=== PATIENT | female | born 1945 | race Caucasian/White ===

== ENCOUNTER → 2017-10-24 11:49 | Outpatient (CLI) | payer MEDICARE, SELFPAY | PROVIDERS: Visit Provider Obstetrics & Gynecology | DX: R31.29 Other microscopic hematuria (principal) | CPT/HCPCS: 87086; 87088 ==

== ENCOUNTER → 2018-02-15 11:03 | Outpatient (CLI) | payer MEDICARE, SELFPAY ==
--- NOTE | 2018-02-15 11:08 | RAD_ITS ---
STUDY: X-RAY - RIGHT KNEE REASON FOR EXAM: Female, 72 years old. Chronic pain. No recent injury. TECHNIQUE: 4 view(s) of the knee. COMPARISON: None. FINDINGS: Normal visualized distal femur. Normal visualized proximal tibia and fibula. Normal proximal tibiofibular articulation. There is no acute fracture, dislocation or destructive osseous pathology. There is mild degenerative arthrosis of the medial femorotibial compartment. Normal lateral femorotibial compartment. There is mild degenerative arthrosis of the patellofemoral articulation. There is no demonstrated joint effusion. The soft tissue structures are unremarkable. RAD/Knee 4 or More Views IMPRESSION: Minimal arthrosis of the right knee. Electronically Signed: Oliverio Reyes DO at 22:37 EDT Tel [phone], Service support ,
--- NOTE | 2018-02-15 11:08 | RAD_ITS ---
STUDY: X-RAY - LUMBAR SPINE REASON FOR EXAM: Female, 72 years old. Chronic pain. No recent injury. TECHNIQUE: 5 view(s) of the lumbar spine were obtained. COMPARISON: None FINDINGS: Normal lumbar lordosis. There is a dextroscoliosis with a convexity at L1. There is anterolisthesis of L5 on S1 of 3 mm. The alignment is otherwise preserved. There is disc space narrowing at L5-S1. The remainder of the disc spaces are preserved. There is no endplate spondylosis. There is no evidence of acute fracture or loss of vertebral axial height. There is no demonstrated spondylolysis of the pars interarticulares. The soft tissue structures are unremarkable. RAD/L/S Spine Min 4 Views IMPRESSION: Scoliosis and degenerative changes of the lumbar spine. Electronically Signed: Oliverio Reyes DO at 22:39 EDT Tel [phone], Service support ,
--- NOTE | 2018-02-15 11:08 | RAD_ITS ---
STUDY: X-RAY - PELVIS AND RIGHT HIP REASON FOR EXAM: Female, 72 years old. Chronic pain. TECHNIQUE: Radiological exam, hip, unilateral, with pelvis when performed; 2 or 3 views. COMPARISON: None. FINDINGS: There is a non-specific bowel gas pattern. Normal visualized soft tissue structures. Tubal ligation clips are seen in the pelvis. Phleboliths are also present. Normal bilateral iliac wings, sacroiliac joints and visualized sacrum. Normal bilateral superior and inferior pubic rami. Normal pubic symphysis. Normal bilateral ischial tuberosities. 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 Normal right acetabulum. There is mild articular joint space narrowing of the right hip. RAD/HIP, UNI W/ Pelvis 2-3 Views IMPRESSION: Degenerative changes the right hip without fracture or dislocation. Electronically Signed: Oliverio Reyes DO at 23:07 EDT Tel [phone], Service support ,
[2018-02-15 12:25] LABS: Absolute Lymphocyte Count 1.93 X10^3/ul (0.83-4.51); Absolute Neutrophil Count 3.8 X10^3/uL (2.0-7.7); Basophil# 0.03 X10^3/uL; Basophil% 0.5 % (0-1); Eosinophil# 0.11 X10^3/uL; Eosinophils% 1.7 % (0-5); Hemoglobin 13.5 g/dl (12.0-15.0); Lymphocyte # 1.93 X10^3/ul (4.0); Lymphocyte % 30.2 % (19-41); Mean Corp Hgb Conc 32.9 g/gl (32-36); Mean Corpuscular Hgb 31.3 pg (27.0-32.0); Mean Corpuscular Volume 95.1 fL (81-99); Mean Platelet Vol. 10.6 fl (6.2-12.0); Monocyte# 0.56 X10^3/uL; Monocyte% 8.8 % (0-10); Neutrophil # 3.76 X10^3/uL (2.7-7.7); Neutrophil % 58.8 % (47-70); Platelet Count 279 K/mm3 (150-450); RBC Distribution Width CV 12.4 % (11.6-14.6); RBC Distribution Width SD 42.6 fl (35.1-43.9); Red Blood Count 4.31 M/mm3 (4.2-5.4); White Blood Count 6.4 K/mm3 (4.4-11.0)
[2018-02-15 12:32] LABS: POSITIVE COUNT NO; POSITIVE DIFFERENTIAL NO; POSITIVE MORPHOLOGY NO
[2018-02-15 13:13] LABS: ALB/GLOB Ratio 0.9 RATIO (0.9-2.4); AST(SGOT) 29 U/L (15-37); Alanine Aminotransfer ALT/SGPT 28 U/L (13-56); Albumin, Serum 3.6 g/dL (3.2-5.0); Alkaline Phosphatase 79 U/L (45-117); Anion Gap 8 (5-15); BUN 21 mg/dL (7-18); Calcium,Total 9.2 mg/dL (8.5-10.1); Chloride 106 mmol/L (98-107); Creatinine, Serum 0.78 mg/dL (0.55-1.02); EST Glomerular Filtration Rate 78 mL/min (>60); Est Glom Filt Rate - Afr Amer 94 mL/min (>60); Glucose 94 mg/dL (74-106); Protein, Total 7.6 g/dL (6.4-8.2); Sodium Level 141 mmol/L (136-145); Thyroid Stim Hormone (TSH) 0.95 uIU/mL (0.358-3.74)
== END ==
PROVIDERS: Visit Provider Family Medicine
DX: M17.11 Unilateral primary osteoarthritis, right knee (principal); M16.11 Unilateral primary osteoarthritis, right hip; M54.16 Radiculopathy, lumbar region; M43.17 Spondylolisthesis, lumbosacral region; M48.07 Spinal stenosis, lumbosacral region; R61 Generalized hyperhidrosis
CPT/HCPCS: 36415; 72110; 73502; 73564; 80053; 84443; 85025

== ENCOUNTER → 2019-02-20 16:22 | Outpatient (CLI) | payer MEDICARE, SELFPAY ==
--- NOTE | 2019-02-20 16:28 | BI_ITS ---
MAMMOGRAPHY - BILATERAL SCREENING REASON FOR EXAM: Female, 73 years old. Routine annual screening examination. PERTINENT HISTORY: Non-contributory. TECHNIQUE: Digital bilateral breast gilberto (3D mammographic acquisition) in the CC and MLO projections. 2-D mediolateral oblique (MLO) and craniocaudad (CC) views of both breasts were obtained. CAD: Full Field Digital Mammography with Computer Added Detection was performed. COMPARISON: Comparison is made with prior examination dated May 27, 2016 and April 28, 2015. FINDINGS: Breast Composition: There are scattered areas of fibroglandular density. There are no dominant masses or suspicious calcifications. No other significant abnormalities are identified. There has been no significant change since the prior study. BI/SCREEN MAMM (CAD) W/GILBERTO BILAT IMPRESSION: Stable bilateral screening mammogram. Yearly follow-up mammogram recommended. (A) ASSESSMENT CATEGORY: BIRADS Category 1: Negative. A letter regarding these results will be sent to the patient by the facility within 30 days. Approximately 10% of breast cancers are not detected by mammography. A normal mammogram should not delay biopsy of a clinically suspicious abnormality. [id number] Electronically Signed: Butch Sánchez, at 8:55 EDT , Service support ,
== END ==
PROVIDERS: Family Provider Family Medicine; PCP Family Medicine; Referring Provider Family Medicine; Visit Provider Family Medicine
DX: Z12.31 Encounter for screening mammogram for malignant neoplasm of breast (principal)
CPT/HCPCS: 77063; 77067

== ENCOUNTER → 2021-01-05 15:22 | Outpatient (CLI) | payer MEDICARE, SELFPAY | PROVIDERS: PCP Family Medicine; Referring Provider Family Medicine; Visit Provider Family Medicine | DX: N39.0 Urinary tract infection, site not specified (principal) | CPT/HCPCS: 87086; 87088 ==

== ENCOUNTER → 2021-03-12 09:50 | Outpatient (CLI) | payer MEDICARE, SELFPAY ==
--- NOTE | 2021-03-12 10:12 | BI_ITS ---
MAMMOGRAPHY - BILATERAL SCREENING 3-D TOMOSYNTHESIS REASON FOR EXAM: Female, 75 years old. SCREENING PERTINENT HISTORY: No significant family history. TECHNIQUE: 2-D mammograms and 3-D Tomosynthesis of the breast (s) were performed. CAD was performed. COMPARISON: 02/20/2019 FINDINGS: The breast composition is heterogeneously dense that can obscure small breast masses. Scattered benign calcifications are seen. No dense spiculated masses or suspicious microcalcifications are identified. No architectural distortion is identified. There is no skin thickening or retraction. There has been no significant change since the prior study. BI/SCRN MAMM (CAD)W/GILBERTO BILAT IMPRESSION: No mammographic signs of malignancy. Routine yearly mammograms recommended. ASSESSMENT CATEGORY: BIRADS Category 1: Negative. A letter regarding these results will be sent to the patient by the facility within 30 days. FOLLOW UP RECOMMENDATION: Yearly follow up mammogram recommended. (A) Approximately 10% of breast cancers are not detected by mammography. A normal mammogram should not delay biopsy of a clinically suspicious abnormality. Electronically Signed: Pierce Moreno MD at 12:28 EDT Tel , Service support ,
== END ==
PROVIDERS: PCP Family Medicine; Referring Provider Family Medicine; Visit Provider Family Medicine
DX: Z12.31 Encounter for screening mammogram for malignant neoplasm of breast (principal)
CPT/HCPCS: 77063; 77067

== ENCOUNTER 2021-11-24 12:38 | Emergency (ER) | payer MEDICARE, SELFPAY ==
[2021-11-24 12:38] VITALS: BP 71/42; PULSE 69; RESP 14; TEMP 36.3; O2SAT 97; BMI 29.2
[2021-11-24] MEDS: Lidocaine/Epi/Tetracaine 50 ML 1 APPLIC TOPICAL (13:54)
--- NOTE | 2021-11-24 15:32 | EDS_ITS ---
HPI History of Present Illness HPI Narrative: Patient presents with a laceration to her right forearm that occurred today. Patient states she was trying to break up 2 dogs from fighting. Patient states the dog's immunizations were up-to-date. Patient is unsure if she was bitten by her dog or scratched with his paw. Patient denies any paresthesias or weakness. Patient describes her pain as aching. Patient states nothing makes it better nothing makes it worse. Patient states the bleeding stopped after several minutes of pressure. Patient denies any other injuries. Chief Complaint: Laceration Informant: patient Occured/Mechanism Comment: Dog bite/scratch Onset/Context/Timing Context: Sudden Onset Timing: Continuous Quality of Pain: Aching Location: Right forearm Worsened by: Nothing Relieved by: Nothing Associated Symptoms Associated Symptoms: Negative for Parasthesia, Weakness or Loss of Funtion Narrative Tetanus Immunization: Unknown [facility] Medical History Anxiety Depression Home Medications clindamycin HCl 300 mg capsule (Cleocin HCl) 300 mg PO Q6H #40 CAPSULES 11/24/21 [Rx Last Taken Unknown] Allergy/AdvReac Type Severity Reaction Status Date / Time Penicillins Allergy Hives Verified 11/24/21 12:40 Social History Smoking Status: Former smoker ROS ROS ED Constitutional Constitutional ED: Denies chills or fever(s) Eyes Eyes: Denies blurry vision or change in vision ENT ENT ED: Denies rhinorrhea or sore throat Cardiovascular Cardiovascular: Denies chest pain or palpitations Respiratory/Chest Respiratory/Chest: Denies cough or dyspnea Gastrointestinal Gastrointestinal: Denies nausea or vomiting Genitourinary Genitourinary ED: Denies dysuria or hematuria Musculoskeletal Musculoskeletal: Reports neck pain; Denies back pain Integumentary Denies abscess or rash Neurologic Neurologic: Denies headache(s) or weakness Allergic/Immunologic Allergic/Immunologic ED: Denies mouth swelling or urticaria EXAM Physical Exam Const Vital Signs: 11/24/21 12:38 Temperature 97.4 F L Temperature Source Temporal Pulse Rate 69 Respiratory Rate 14 Blood Pressure 71/42 L Blood Pressure Mean 51 Pulse Ox 97 Oxygen Delivery Method Room Air Positive well nourished and well developed General Appearance ED: well developed and NAD HEENT Reports moist mucous membranes Neck full ROM Neuro oriented x3, CN's II-XII intact bilaterally, moves all extremities, no focal motor deficits and no sensory deficits noted Sensorium / Orientation: alert Motor Exam: strength 5/5 throughout Psych mental status grossly normal Skin Skin Narrative: There is a 4 cm stellate laceration over the volar medial aspect of the right mid forearm. There is moderate gapping of the wound margins. There is no active bleeding. There are no foreign bodies noted. There is no tendon laceration noted. There is full range of motion in the wrist and all digits. Strength is 5/5 in the radial, median, and ulnar areas. Sensation was intact to light touch in the radial, median, and ulnar areas. Radial pulses are equal bilaterally. MDM MDM MDM Narrative Medical decision making narrative: The wound was cleaned and irrigated with copious amounts of normal saline. The wound was anesthetized with 1% plain lidocaine locally. The wound was closed with 3 simple interrupted #4-0 Vicryl subcutaneous sutures and 5 simple interrupted #4-0 nylon sutures under sterile technique. Patient tolerated the procedure well. Bacitracin dressing was applied. Patient was given a dose of clindamycin here. Patient was given a prescription for clindamycin. Patient was instructed to keep the wound clean and dry. Patient was instructed to follow-up with her primary care physician in 5 to 7 days. Patient understood and was agreeable with the plan. All questions were answered. Procedures Lacerations Right forearm: Length: 4 cm Depth: Sub Q Shape: Stellate Prep: Sterile Conditions Laceration repair: Irrigated, Lidocaine, Local, Skin sutures (5 simple interrupted #4-0 nylon) and Subcutaneous sutures (3 simple interrupted #4-0 Vicryl) Irrigated (ml): 60 Discharge Plan Triage Chief Complaint: Laceration ED Provider: Sacha Figueredo Dx/Rx/DC Orders Clinical Impression: Laceration of forearm, right, Dog bite of right forearm Instructions: ED Dog Bite, ED Laceration: All Closures Prescriptions: New clindamycin HCl [Cleocin HCl] 300 MG capsule 300 mg PO Q6H Qty: 40 0RF Primary Care Provider: Shahid Lam Referrals: Shahid Lam DO [Primary Care Provider] - 7 Days for suture removal Disposition Disposition: Home, Self Care
[2021-11-24] MEDS: Diphth,Pertuss(Acell),Tet Vac 0.5 ML Vial IM (15:50)
[2021-11-24] MEDS: Clindamycin HCl 150 MG Capsule 300 MG PO (15:50)
[2021-11-24] MEDS: Lidocaine 1% (20 ml mdv) 20 ML Vial INFILT (15:51)
[2021-11-24] MEDS: BACITRACIN 15 GM Tube 1 APPLIC TOPICAL (15:52)
== END 2021-11-24 15:58 | disposition home or self-care (01) ==
PROVIDERS: Emergency Provider Emergency Medicine; PCP Family Medicine; Visit Provider Emergency Medicine
DX: S51.811A Laceration without foreign body of right forearm, initial encounter (principal); Z87.891 Personal history of nicotine dependence; Z23 Encounter for immunization; W54.0XXA Bitten by dog, initial encounter
CPT/HCPCS: 12002; 90471; 90715; 99284

== ENCOUNTER → 2022-03-16 | Outpatient (CLI) | payer MEDICARE, SELFPAY ==
--- NOTE | 2022-03-16 12:03 | BI_ITS ---
MAMMOGRAPHY - BILATERAL SCREENING REASON FOR EXAM: Female, 76 years old. Routine annual screening examination. PERTINENT HISTORY: Non-contributory. TECHNIQUE: Digital bilateral breast gilberto (3D mammographic acquisition) in the CC and MLO projections. 2-D mediolateral oblique (MLO) and craniocaudad (CC) views of both breasts were obtained. CAD: Full Field Digital Mammography with Computer Added Detection was performed. COMPARISON: Comparison is made with prior examination dated 03/12/2021 and 02/20/2019. FINDINGS: Breast Composition: There are scattered areas of fibroglandular density. There are no dominant masses or suspicious calcifications. No other significant abnormalities are identified. There has been no significant change since the prior study. BI/SCRN MAMM (CAD)W/GILBERTO BILAT IMPRESSION: Stable bilateral screening mammogram. Yearly follow-up mammogram recommended. (A) ASSESSMENT CATEGORY: BIRADS Category 1: Negative. A letter regarding these results will be sent to the patient by the facility within 30 days. Approximately 10% of breast cancers are not detected by mammography. A normal mammogram should not delay biopsy of a clinically suspicious abnormality. [id number] Electronically Signed: Butch Sánchez MD at 13:15 EDT ,
== END | disposition home or self-care (01) ==
LOC: OPBI 12:01
PROVIDERS: PCP Family Medicine; Visit Provider Family Medicine
DX: Z12.31 Encounter for screening mammogram for malignant neoplasm of breast (principal)
CPT/HCPCS: 77063; 77067

== ENCOUNTER 2022-12-05 15:36 | Emergency (ER) | payer MEDICARE, SELFPAY ==
[2022-12-05 15:37] VITALS: BP 98/58; PULSE 75; RESP 14; TEMP 36.3; O2SAT 100; BMI 29.2
--- NOTE | 2022-12-05 15:56 | EDS_ITS ---
HPI History of Present Illness Chief Complaint: Laceration Informant: patient Narrative Narrative: Patient presents with a laceration to index and middle finger of left hand. Shortly before arrival, she was using a duplex trimmer and accidentally cut her fingers. No other injury. No blood thinners. Last tetanus was 1 year ago. She has pain in the area. She states she has some numbness at the tip of her index but then she states it is pain at the tip of the index but she can feel me when I touch her also. PFSH [facility] Medical History Anxiety Depression Home Medications clindamycin HCl 300 mg capsule (Cleocin HCl) 300 mg PO Q6H #40 CAPSULES 11/24/21 [Rx Last Taken Unknown] clindamycin HCl 300 mg capsule (Cleocin HCl) 300 mg PO Q6H #40 CAPSULES 12/05/22 [Rx Last Taken Unknown] Allergy/AdvReac Type Severity Reaction Status Date / Time Penicillins Allergy Hives Verified 12/05/22 15:40 Social History Smoking Status: Former smoker ROS ROS ED Constitutional Constitutional ED: Denies chills or fever(s) Gastrointestinal Gastrointestinal: Denies nausea or vomiting Musculoskeletal Musculoskeletal: Reports other Details: Left finger pain as in history of present illness. Integumentary Reports other Details: Laceration as in history of present illness. Neurologic Neurologic: Reports other Details: Possible paresthesias to the lateral aspect of the index. ; Denies weakness Psychiatric Psychiatric: Reports anxiety Hematologic/Lymphatic Hematologic/Lymphatic: Denies easy bleeding or easy bruising EXAM Physical Exam Narrative Exam Narrative: Patient is awake alert sitting comfortably in bed no acute distress. HEENT shows no trauma Cardiorespiratory shows easy unlabored breathing and normal saturations 100% on room air. Heart rate is normal. Extremities show wrappings on the left index and long. These were taken down. The long finger has a 1 cm laceration on the volar lateral aspect overlying the middle phalanx. No active bleeding. Range of motion is superficial and profundus is normal. Sensation is completely normal. She also has a jagged irregular laceration that has 2 parallel cuts overlying the similar area on the volar lateral aspect but of the left index. This is longer likely totaling about 3 and half centimeters in length. Minimal bleeding from the area that just is slow and likely venous. She still can feel me touch every time I touch in the distal finger. But she states it hurts and it is numb. I think she may have some neurologic injury but her nerve does seem to be intact. Again superficial profundus as well as extensor tendons are also intact in this finger. Const Vital Signs: 12/05/22 15:37 Temperature 97.4 F L Temperature Source Temporal Pulse Rate 75 Respiratory Rate 14 Blood Pressure 98/58 L Blood Pressure Mean 71 Pulse Ox 100 Oxygen Delivery Method Room Air MDM MDM MDM Narrative Medical decision making narrative: Independent interpretation the patient's three-view x-ray of the hand clearly shows some bony involvement on the index finger middle phalanx indicating open fracture. At this point we will start IV. I will give her IV antibiotics. She has history of hives and possible anaphylaxis to penicillins. She is not 100% sure the reaction. We will avoid this. I discussed the case with our orthopedic surgeon on-call, Dr. Pena. He explained that as long as we do not see a cut flexor tendon and we can clean t his well she can be washed out antibiotic started and follow-up. Procedure: Suture and exploration of finger laceration wound: We sterilely prepped and scrubbed the entire hand. Sterile gauze were placed around and under this. Only her 2 involved fingers were exposed through a hole in the draping. The laceration on the middle finger was copiously irrigated with about 300 cc. It was sutured with 3 interrupted 4-0 Ethilon with good cosmesis hemostasis and she tolerated well. There is a small break in the skin just proximal to this that did not need suturing. Range of motion was excellent before and after suturing. We then turned our attention to the index finger. This was a very complex irregular jagged laceration with portions that had skin completely surrounded by laceration so they were skin islands in the middle of this. There is one section that had 6 prongs of tissue all coming to a central hole. On the edges I placed a total of 3 interrupted 5-0 Ethilon. We then used a pursestring suture around all the tips of the tissue to pull those together. I then used 3 more sutures that overlie multiple suture planes to try to bring these together. Her range of motion before and after this was good. I isolated both flexor profundus and superficialis and I get motion with both. I see no indication of clinical tendon rupture. We looked at this wound with pinching the vascular supply in a bloodless field and irrigated it and I do not see any tendon material. Even after suturing she had excellent tendon motion. I explained to the patient that this is a very jagged irregular laceration with missing tissue, devitalized islands of tissue, and very complex laceration. We have copiously irrigated this with approaching a liter of saline using a saline and jet tip. We have cleaned it during the procedure irrigating further and scrubbing it. We have brought this together. We will keep her on antibiotics. She still has a higher risk of infection. We discussed reasons to return that would include malodorous drainage, increased drainage or bleeding, redness or swelling, fevers, worsening pain or any other concerns. Discharge Plan Triage Chief Complaint: Laceration ED Provider: Aldair Germain Dx/Rx/DC Orders Clinical Impression: Sutured skin wound, Laceration of left index finger, Laceration of left middle finger, Open fracture of middle phalanx of left index finger Instructions: ED Laceration, Hand: All Closures Prescriptions: New clindamycin HCl [Cleocin HCl] 300 mg capsule 300 mg PO Q6H Qty: 40 0RF No Action clindamycin HCl [Cleocin HCl] 300 MG capsule 300 mg PO Q6H Qty: 40 0RF Primary Care Provider: Shahid Lam Referrals: Shahid Lam DO [Primary Care Provider] - 10-14 Days suture removal Wilian Pena MD [Med Staff - Active Staff] - 2 Days for wound check Disposition Disposition: Home, Self Care Discharge Date/Time: 12/05/22 18:52
--- NOTE | 2022-12-05 16:00 | RAD_ITS ---
EXAM: XR LEFT HAND COMPLETE, 3 OR MORE VIEWS CLINICAL INDICATION: Trauma TECHNIQUE: Frontal, lateral and oblique views of the left hand. COMPARISON: No relevant prior studies available. FINDINGS: BONES/JOINTS: There is a cortical fracture of the middle second phalanx. There is no overlying soft tissue neck. There are degenerative changes with narrowing of the. No sclerotic or destructive changes observed. SOFT TISSUES: Unremarkable. No soft tissue swelling or gas. No radiopaque foreign body. RAD/Hand Min 3 Views IMPRESSION: Fracture of the cortex of the middle second phalanx with overlying soft tissue defect. Electronically Signed: Mario Fraire MD at 16:16 EDT ,
[2022-12-05] MEDS: Bupivacaine Mpf 0.5% 30 ML VIAL INFILT (16:36)
[2022-12-05] MEDS: Clindamycin 600 MG/50 ML BAG 100 MG IV (17:44)
== END 2022-12-05 18:52 | disposition home or self-care (01) ==
LOC: ED 16:51
PROVIDERS: Emergency Provider Emergency Medicine; PCP Family Medicine; Visit Provider Emergency Medicine
DX: S62.621B Displaced fracture of middle phalanx of left index finger, initial encounter for open fracture (principal); Z87.891 Personal history of nicotine dependence; W29.3XXA Contact with powered garden and outdoor hand tools and machinery, initial encounter
CPT/HCPCS: 12002; 73130; 99284; A4216

== ENCOUNTER 2023-02-07 11:00 | Outpatient (RCR) | payer MEDICARE, SELFPAY ==
--- NOTE | 2022-12-26 09:08 | HP.OTEVAL_ITS ---
Patient's Visit Information Visit Information Visit Information: TRINO BURTON is a 77 year old F, referred to Occupational Therapy by Ruslan Jimenez PA-C, with a diagnosis of Laceration L idx fngr w/o damage to nail, Disp fx of middle phalanx L IF. Date of Evaluation: 12/21/22 Occupational Therapist: Sylvia Capellan, AICHA/Ifeanyi, CHT Subjective Subjective: Pt is a 77 year old female with a L index finger laceration and middle phalanx fracture. Pt was using the double end trimmer and cut finger with the double end trimmer on 12/05/2022 adn when to the hospital. Fingers were treated by utilizing crys taped the index finger and middle finger and in orthosis for about two weeks. Pt had 8 stitches removed from the L index finger on 12/16/2022. Pt reports keeping fingers immobilized for the majority of time. Pt reports getting a little queasy with sight of injury- keeps it bandaged throughout the day. Pt reports some numbness on left index finger. Pt is right-hand dominant. ADLs Dressing: Button shirt Eating: Cut food Miscellaneous: Open medication bottle, Handle money (change), Sew and Elodia/knit/needlework Comments: Pt lives alone and cares for her two cats. Pt reports difficulty knitting a blanket for niece and gripping items. Pain L index finger: Current Pain Intensity: 8 Objective Objective/Observation: Left index finger bandaged with scab, bruising, and edema- left middle finger lacerations healing well. Pt very protective during eval, keeping left index finger straight. ROM MP: R IF 40 MF 60 L IF 40 MF 50 PIP: R IF 0/105 MF 0/100 L IF +2/25 MF +5/99 DIP: R IF -/59 MF -/65 L IF +15/0 MF +5/43 ROM Comments: when opposing DIP flexion increases to 45* Pt unable to flex PIP and limited DIP demonstrating decreased ability to make a fist - with stiffness in DIP Strength Midlevel Provider: R 55 Lateral Pinch: R 14 Tripod Pinch: R 9 Strength Comments: Did not test quality assurance supervisor chassis L hand at this point due to fracture and healing process Edema Other: R proximal phalanx 2.5 L proximal phalanx 3 and middle phalanx 2 Sensation Sensation Comments: no difference in sensation difference with 3.22 filament scar is hyper sensitive Quick DASH-Disab of Arm,Shoulder& Hand Quick DASH Score: 36.3625 Goals Goal:: Pt will report ability to perform ADL and IADL tasks with no compensation or pain by discharge. Pt will improve Left quality assurance supervisor chassis and pinch strength 75% of unaffected hand. Goal:: Pt to demo overall increased indep in ADL/IADL tasks by decreased total DASH score by 10 points by discharge. Goal:: Pt will report pain no greater than 0/10 with use of affected hand with BADLs and IADLs by discharge. Goal:: Pt to demo overall increased indep in ADL/IADL tasks by decreased total DASH score by 10 points by discharge. Rehabilitation General Assessment: Pt seen for OT evaluation status post left index and middle finger lacerations, left index with middle phalanx fracture due to double end trimmer accident cutting fingers on 12/05/2022. Pt had 8 stitches removed from L index finger on 12/16/2022. Pt has difficulty performing ADL and IADL tasks. Pt will benefit from skilled occupational therapy 1-2x a week for 4 weeks to increased independence in ADL and IADL tasks. Pt educated on OT POC, starting to de- sensitize finger to allow healing process, and gentle AROM while performing functional tasks. Pt verbalizes understanding and agreeable to treatment plan. Therapy session was directly supervises and doc. approved by Sylvia HOLCOMB/Ifeanyi,CHT. Rehabilitation Potential: Excellent Anticipated Interventions Anticipated Interventions: A/AAROM/PROM, Strengthening, Edema Control, Scar Care, Triggerpoint Release, Desensitization, Sensory Retraining, Wound Care, Modalities, Joint Protection/Energy Conservation, Fine Motor Coord/[place], Neuro Reeducation, ADL Training, Education re assistive Equipment, Education re Diagnosis, Education re Skin Care and Precautions and Home Program Visit Plan Frequency: 1-2x /Week Duration: 2 Months General Plan: Pt will be seen for skilled OT for 1-2 x a week for 4-8 weeks. AROM/PROM edema management scar management Joint protection strengthening TEXT: Thank you for the opportunity to evaluate your patient. For Medicare and Medicare HMO plans, please review the plan of care and approve it. It will need to be FAXED BACK to us at [phone] for Medicare purposes. Please let me know if there are questions or concerns regarding this plan of care. Physician Signature: Date:
--- NOTE | 2023-02-07 12:25 | HP.OTDCSUM_ITS ---
Discharge Summary D/C Summary: It has been my pleasure to treat TRINO BURTON under orders from Ruslan Jimenez PA-C, for the diagnosis of Laceration L idx & mid fngr w/o damage to nail, Disp fx of mid phalanx L IF for a total of 9 visit(s). Please see the following information for a summary of their discharge status. Overall Improvement % Improvement: 25 Objective Objective/Function: L IF DIP 5.5cm PIP 6 cm L IF DIP 0/90 L hand fresh work inspector strength: 24# L lateral fresh work inspector strength:14# L Tripod fresh work inspector strength: 8# Goals Patient Goals: Regain Mobility, Regain Strength, Decrease Pain, Decrease Swelling/Stiffness, Improve Fine Motor Skills, Use Hand/Wrist/Arm Normally Again, Increase ROM, Be More Independent in ADLS, Resume Former Household Responsibilities (Cooking,Cleaning,Yard, etc.) and Resume Hobbies Goal:: Pt will report ability to perform ADL and IADL tasks with no compensation or pain by discharge. Pt will improve Left fresh work inspector and pinch strength 75% of unaffected hand. Goal:: Pt to demo overall increased indep in ADL/IADL tasks by decreased total DASH score by 10 points by discharge. Goal:: Pt will report pain no greater than 0/10 with use of affected hand with BADLs and IADLs by discharge. Goal:: Pt to demo overall increased indep in ADL/IADL tasks by decreased total DASH score by 10 points by discharge. Plan Plan: Discharge D/C Information Discharge Comments: Pt was seen for 9 skilled OT sessions. Therapist edu in desensitization, protection of L IF DIP, and ring orthosis. Pt reports understanding of joint protection techniques, scar care, and ring orthosis to protect L IF DIP. Pt agreeable to discharge at this time. Therapy session was directly supervised and doc. approved by Sylvia HOLCOMB/Ifeanyi,BRIA. d/c sentence: If there are questions or concerns regarding this patient's occupational therapy, please fell free to call me at [phone]. Thank you for the referral of this patient. Sincerely, AICHA Delatorre/Ifeanyi, BRIA
== END 2023-02-07 12:37 | disposition home or self-care (01) ==
LOC: OT 11:00
PROVIDERS: PCP Family Medicine; Referring Provider Physician Assistant Surgical; Visit Provider Physician Assistant Surgical
DX: S61.211D Laceration without foreign body of left index finger without damage to nail, subsequent encounter (principal); S62.621D Displaced fracture of middle phalanx of left index finger, subsequent encounter for fracture with routine healing
CPT/HCPCS: 97140; 97165; 97166; 97530

== ENCOUNTER → 2023-02-07 | Outpatient (CLI) | payer MEDICARE, SELFPAY ==
[2023-02-07 12:29] LABS: Absolute Lymphocyte Count 1.32 X10^3/uL (0.83-4.51); Absolute Neutrophil Count 3.4 X10^3/uL (2.0-7.7); Basophil# 0.04 X10^3/uL; Basophil% 0.8 % (0-1); Eosinophil# 0.12 X10^3/uL; Eosinophils% 2.3 % (0-5); Hematocrit 38.8 % (37-47); Hemoglobin 12.9 g/dL (12.0-15.0); Lymphocyte # 1.32 X10^3/ul (0.83-4.51); Lymphocyte % 24.8 % (19-41); Mean Corp Hgb Conc 33.2 g/dL (32-36); Mean Corpuscular Hgb 32.7 pg (27.0-32.0); Mean Corpuscular Volume 98.2 fL (81-99); Mean Platelet Vol. 10.6 fl (6.2-12.0); Monocyte# 0.42 X10^3/uL; Monocyte% 7.9 % (0-10); NRBC Flagged by Analyzer 0 % (0-5); Neutrophil % 63.8 % (47-70); Platelet Count 265 K/mm3 (150-450); RBC Distribution Width CV 12.8 % (11.6-14.6); RBC Distribution Width SD 45.7 fl (35.1-43.9); Red Blood Count 3.95 M/mm3 (4.2-5.4); White Blood Count 5.3 K/mm3 (4.4-11.0)
[2023-02-07 12:48] LABS: ALB/GLOB Ratio 0.9 RATIO (0.9-2.4); AST(SGOT) 23 U/L (15-37); Alanine Aminotransfer ALT/SGPT 23 U/L (13-56); Albumin, Serum 3.3 g/dL (3.2-5.0); Alkaline Phosphatase 76 U/L (45-117); Anion Gap 6 (5-15); BUN 18 mg/dL (7-18); BUN/Creat Ratio 23.6 RATIO (10-20); Calcium,Total 8.8 mg/dL (8.5-10.1); Chloride 110 mmol/L (98-107); Cholesterol 245 mg/dL (200); Creatinine, Serum 0.76 mg/dL (0.55-1.02); EST Glomerular Filtration Rate 78 mL/min (>60); Est Glom Filt Rate - Afr Amer 95 mL/min (>60); Globulin 3.7 g/dL (2.2-4.2); Glucose 97 mg/dL (74-106); High Density Lipoprotein 56 mg/dL; Sodium Level 142 mmol/L (136-145); Triglycerides 119 mg/dL; Very Low Density Lipoprotein 24 mg/dL (5-40)
[2023-02-07 14:45] LABS: Vitamin D,25 Hydroxy 12.2 ng/mL
== END | disposition home or self-care (01) ==
LOC: BFHLAB 10:13
PROVIDERS: PCP Nurse Practitioner Family; Referring Provider Nurse Practitioner Family; Visit Provider Nurse Practitioner Family
DX: E78.5 Hyperlipidemia, unspecified (principal); I10 Essential (primary) hypertension; E55.9 Vitamin D deficiency, unspecified
CPT/HCPCS: 36415; 80053; 80061; 82306; 85025

== ENCOUNTER → 2023-03-21 | Outpatient (CLI) | payer MEDICARE, SELFPAY ==
--- NOTE | 2023-03-21 09:57 | BI_ITS ---
MAMMOGRAPHY - BILATERAL SCREENING 3-D TOMOSYNTHESIS REASON FOR EXAM: Female, 77 years old. SCREENING PERTINENT HISTORY: No significant family history. TECHNIQUE: 2-D mammograms and 3-D Tomosynthesis of the breast (s) were performed. CAD was performed. COMPARISON: 03/16/2022 FINDINGS: The breast composition is composed of scattered fibroglandular density. Scattered benign calcifications are seen. No dense spiculated masses or suspicious microcalcifications are identified. No architectural distortion is identified. There is no skin thickening or retraction. There has been no significant change since the prior study. BI/SCRN MAMM (CAD)W/GILBERTO BILAT IMPRESSION: No mammographic signs of malignancy. Routine yearly mammograms recommended. ASSESSMENT CATEGORY: BIRADS Category 1: Negative. A letter regarding these results will be sent to the patient by the facility within 30 days. FOLLOW UP RECOMMENDATION: Yearly follow up mammogram recommended. (A) Approximately 10% of breast cancers are not detected by mammography. A normal mammogram should not delay biopsy of a clinically suspicious abnormality. Electronically Signed: Pierce Moreno MD at 13:37 EDT ,
--- NOTE | 2023-03-21 10:03 | BD_ITS ---
STUDY: DUAL ENERGY X-RAY ABSORPTIOMETRY / DXA REASON FOR EXAM: Female, 77 years old. Z79.52 TECHNIQUE: Bone Mineral Density (BMD) measurements of lumbar spine and bilateral hips were obtained. COMPARISON: None. FINDINGS: Lumbar Spine (L1-L4): g/cm2 (0.927) / T-score (-1.1) / Z-score (1.3) Findings are suggestive of osteopenia with a low fracture risk. Left Femur Total: g/cm2 (0.891) / T-score (-0.4) / Z-score (1.4) Left Femoral Neck: g/cm2 (0.704) / T-score (-1.3) / Z-score (0.8) Right Femur Total: g/cm2 (0.903) / T-score (-0.3) / Z-score (1.5) Right Femoral Neck: g/cm2 (0.725) / T-score (-1.1) / Z-score (1.0) BD/Dexa Bone Density Study IMPRESSION: The patient is considered osteopenic as outlined below according to World Wily Organization (WHO) criteria with a low fracture risk. Reference Information: The T-score is the number of standard deviations above or below the standard which is normal for young adults at their peak bone mineral density. The World Health Organization (WHO) interprets the T-scores as follows: Above -1 Normal bone density Between -1 and -2.5 Osteopenia Equal to / or below -2.5 Osteoporosis As a practical clinical guideline, osteopenia may be graded as follows: Mild -1 through -1.5 Moderate -1.6 through -2.0 Severe -2.1 through -2.4 The Z-score is the number of standard deviations above or below age-matched controls. A Z-score of less than -1.5 would be considered abnormal. References: 1. NIH Osteoporosis and Related Bone Diseases www osteo.org 2. International Society for Clinical Densitometry www iscd.org 3. National Osteoporosis Foundation www nof.org Electronically Signed: Butch Sánchez MD at 8:38 EDT ,
== END | disposition home or self-care (01) ==
LOC: OPBD 09:56
PROVIDERS: PCP Nurse Practitioner Family; Referring Provider Nurse Practitioner Family; Visit Provider Nurse Practitioner Family
DX: Z12.31 Encounter for screening mammogram for malignant neoplasm of breast (principal); Z79.52 Long term (current) use of systemic steroids
CPT/HCPCS: 77063; 77067; 77080

== ENCOUNTER → 2025-02-25 | Outpatient (CLI) | payer MEDICARE, SELFPAY | END | disposition home or self-care (01) | LOC: LABSPEC 15:33 | PROVIDERS: PCP Nurse Practitioner Family; Referring Provider Nurse Practitioner Family; Visit Provider Nurse Practitioner Family | DX: N39.0 Urinary tract infection, site not specified (principal) | CPT/HCPCS: 87086; 87088 ==

== ENCOUNTER → 2025-03-19 | Outpatient (CLI) | payer MEDICARE, SELFPAY | END | disposition home or self-care (01) | LOC: MTLAB 15:09 | PROVIDERS: PCP Nurse Practitioner Family; Referring Provider Nurse Practitioner Family; Visit Provider Nurse Practitioner Family | DX: R19.7 Diarrhea, unspecified (principal) | CPT/HCPCS: 83630; 87177; 87209; 87493; 87506 ==

== ENCOUNTER → 2025-03-21 | Outpatient (CLI) | payer MEDICARE, SELFPAY ==
--- OUTSIDE RECORDS SUMMARY | 2025-03-21 11:23 | XMS RPT_ITS | CCD ---
Author Organization [facility] Care Team Providers Care Flask Cleaner Name Role Phone Shayy Bravo Referring Unavailable Shayy Bravo Attending Unavailable Shayy Bravo Primary Care Unavailable Allergies Allergy Classification Reported Allergen(s) Allergy Type Date of Onset Reaction(s) Facility (4 sources) Penicillins Allergy to substance 11-24-2021 [facility] (1 source) Penicillins Drug allergy (disorder) 12-05-2022 [facility] Repository Medications Current Medications Medication Drug Class(es) Dates Sig (Normalized) Sig (Original) clindamycin 300 mg oral capsule (7 sources) Lincosamide Antibacterial Start: 11-24-2021 take 1 capsule by mouth every six hours Clindamycin Hcl (Cleocin Hcl) 300 mg capsule Active 300 MG PO EVERY 6 HOURS 40 December 05, 2022 12:00am Problems Problem Classification Problem Date Documented Da te Episodic/Chronic Fracture of upper limb (2 sources) Open fracture of middle phalanx of index finger of left hand; Translations: [Displaced fracture of middle phalanx of left index finger, initial encounter for open fracture] 12-13-2022 Episodic Open wounds of extremities (8 sources) Dog bite of forearm; Translations: [Open bite of right forearm, initial encounter] 12-02-2021 Episodic Open wounds of extremities (6 sources) Laceration of left index finger; Translations: [Laceration without foreign body of left index finger without damage to nail, initial encounter] 12-05-2022 Episodic Other injuries and conditions due to external causes (3 sources) Wound finding; Translations: [Other injury of unspecified body region, initial encounter] 12-05-2022 Episodic Urinary tract infections (1 source) Urinary tract infection, site not specified; Translations: [Urinary tract infection, site not specified] Onset: 02-25-2025 Episodic Results Test Name Value Interpretation Reference Range Facility Urine Cultureon 02-27-2025 [facility] Mixed Gram Positive Organisms [place] Count 1000-10,000 [facility] Mixed contaminants. Submit a new specimen if indicated. Normal [facility] Comment on above: Performed By: #### M 100.6492 #### [facility] [address] [place], [address] Absolute lymphocyte countOrd ered By: Shayy Bravo on 02-07-2023 Lymphocytes Auto (Unsp spec) [#/Vol] 1.32 10*3/uL 0.83-4.51 [facility] Basophil percentageOrdered B y: Shayy Bravo on 02-07-2023 Basophils/100 WBC (Bld) 0.8 % 0-1 [facility] Bilirubin [Mass/Vol] 0.40 mg/dL 0.20-1.00 [facility] Comment on above: For patients on eltr ombopag therapy, use of Dimension [place] TBIL is not recommended. Chloride [Moles/Vol] 110 mmol/L 98-107 [facility] Cholesterol [Mass/Vol] 245 mg/dL <200 [facility] Comment on above: <200 mg/dL Desirable 200-240 mg/dL Borderline >240 mg/dL High Risk Eosinophils/100 WBC (Bld) 2.3 % 0-5 [facility] Glucose [Mass/Vol] 97 mg/dL 74-106 [facility] Neutrophils (Bld) [#/Vol] 3.4 10*3/uL 2.0-7.7 [facility] Neutrophils/100 WBC (Bld) 63.8 % 47-70 [facility] Potassium [Moles/Vol] 4.0 mmol/L 3.5-5.1 [facility] Protein [Mass/Vol] 7.0 g/dL 6.4-8.2 [facility] Sodium [Moles/Vol] 142 mmol/L 136-145 [facility] Triglyceride [Mass/Vol] 119 mg/dL <199 [facility] Comment on above: The drugs N-Acetylcy steine and Metamizole may falsely depress this assay.Serum Triglycerides Reference Interval Normal <150 mg/dL Borderline high 150 - 199 mg/dL High 200 - 499 mg/dL Very High > or = 500 mg/dL WBC (Bld) [#/Vol] 5.3 10*3/uL 4.4-11.0 [facility] Blood erythrocytes count (nu mber/volume)Ordered By: Shayy Bravo on 02-07-2023 RBC (Bld) [#/Vol] 3.95 10*6/uL 4.2-5.4 [facility] Blood hemoglobin measurement (mass/volume)Ordered By: Shayy Bravo on 02-07-2023 Hemoglobin (Bld) [Mass/Vol] 12.9 g/dL 12.0-15.0 [facility] Blood lymphocytes/100 leukoc ytesOrdered By: Shayyperi Bravo on 02-07-2023 Lymphocytes/100 WBC (Bld) 24.8 % 19-41 [facility] Blood monocytes/100 leukocyt esOrdered By: Shayyperi Bravo on 02-07-2023 Monocytes/100 WBC (Bld) 7.9 % 0-10 [facility] Blood platelet mean volumeOr dered By: Shayy Bravo on 02-07-2023 Platelet mean volume (Bld) [Entitic vol] 10.6 fL 6.2-12.0 [facility] Determination of erythrocyte mean corpuscular volume (MCV)Ordered By: Shayy Bravo on 02-07-2023 MCV (RBC) [Entitic vol] 98.2 fL 81-99 [facility] Hematocrit Auto (Bld) [Volum e fraction]Ordered By: Shayy Bravo on 02-07-2023 Hematocrit (Bld) [Volume fraction] 38.8 % 37-47 [facility] - Chemistry and C hemistry - challengeOrdered By: Shayy Bravo on 02-07-2023 ALP [Catalytic activity/Vol] 76 U/L 45-117 [facility] ALT [Catalytic activity/Vol] 23 U/L 13-56 [facility] CO2 [Moles/Vol] 26.0 mmol/L 21.0-32.0 [facility] Globulin (S) [Mass/Vol] 3.7 g/dL 2.2-4.2 [facility] Urea nitrogen/Creatinine [Mass ratio] 23.6 mg/mg 10-20 [facility] - Hematology and Cell countsOrdered By: Shayy Bravo on 02-07-2023 Erythrocyte distribution width (RBC) [Entitic vol] 45.7 fL 35.1-43.9 [facility] Erythrocyte distribution width (RBC) [Ratio] 12.8 % 11.6-14.6 [facility] Immature granulocytes/100 WBC (Bld) 0.400 % 0.0-0.9 [facility] Comment on above: IG% - Immature Granu locytes (promyelocytes, myelocytes and metamyelocytes) > 1% indicates that a LEFT SHIFT is Present. MCH (RBC) [Entitic mass] 32.7 pg 27.0-32.0 [facility] Nucleated RBC/100 WBC (Bld) [Ratio] 0 % 0-5 [facility] MCHC Auto (RBC) [Mass/Vol]Or dered By: Shayy Bravo on 02-07-2023 MCHC (RBC) [Mass/Vol] 33.2 g/dL 32-36 [facility] No Panel InformationOrdered By: Shayy Bravo on 02-07-2023 Estimated GFR (MDRD) Amer 95 mL/min >60 [facility] Comment on above: GFR Calc Estimated GFR (MDRD) Non-Af Amer 78 mL/min >60 [facility] Comment on above: Non- GFR Calc Vitamin D 25-Hydroxy 12.2 ng/mL [facility] Comment on above: Vitamin D 25(OH) Sta tus Range Deficiency <20 ng/mL (50nmol/L) Insufficiency 20 - 30 ng/mL (50 - 75 nmol/L) Sufficiency 30 - 100 ng/mL (75 - 250 nmol/L) Toxicity >100 ng/mL (>250 nmol/L) Platelets bldOrdered By: Aidan Bravo on 02-07-2023 Platelets (Bld) [#/Vol] 265 10*3/uL 150-450 [facility] Serum or plasma albumin saul urement (mass/volume)Ordered By: Shayy Bravo on 02-07-2023 Albumin [Mass/Vol] 3.3 g/dL 3.2-5.0 [facility] Serum or plasma albumin/glob ulin mass ratioOrdered By: Shayy Bravo on 02-07-2023 Albumin/Globulin [Mass ratio] 0.9 {ratio} 0.9-2.4 [facility] Serum or plasma calcium saul urement (mass/volume)Ordered By: Shayy Bravo on 02-07-2023 Calcium [Mass/Vol] 8.8 mg/dL 8.5-10.1 [facility] Serum or plasma cholesterol in HDL measurement (mass/volume)Ordered By: Shayy Bravo on 02-07-2023 Cholesterol in HDL [Mass/Vol] 56 mg/dL >40 [facility] Comment on above: The drugs N-Acetylcy steine and Metamizole may falsely depress this assay. Reference Range HDL <40 mg/dL Low HDL Cholesterol HDL >or= 60 mg/dL High HDL Cholesterol Serum or plasma cholesterol in VLDL measurement (mass/volume)Ordered By: Shayy Bravo on 02-07-2023 Cholesterol in VLDL [Mass/Vol] 24 mg/dL 5-40 [facility] Serum or plasma creatinine m easurement (mass/volume)Ordered By: Shayy Bravo on 02-07-2023 Creatinine [Mass/Vol] 0.76 mg/dL 0.55-1.02 [facility] Comment on above: The validity of the calculated GFR & GFRAA in patients over 70 years has not been determined. Clinical correlation is essential. Serum or plasma low density lipoprotein (LDL) cholesterol measurement (mass/volume)Ordered By: Shayy Bravo on 02-07-2023 Cholesterol in LDL [Mass/Vol] 165 mg/dL 0-130 [facility] Serum or plasma urea nitroge n measurement (mass/volume)Ordered By: Shayy Bravo on 02-07-2023 Urea nitrogen [Mass/Vol] 18 mg/dL 7-18 [facility] Thin prep Papanicolaou smear with manual screeningOrdered By: [place] Lawrence on 02-07-2023 Thin prep Papanicolaou smear with manual screening 23 U/L 15-37 [facility] Thin prep Papanicolaou smear with manual screening 6 5-15 [facility] Vital Signs Date Time Vital Sign Value Performing Clinician Faci lity 12-05-2022 15:37-0400 Body height 162.56 cm [facility] 12-05-2022 15:37-0400 Body mass index (BMI) [Ratio] 29.2 kg/m2 [facility] 12-05-2022 15:37-0400 Body temperature 97.4 [degF] [facility] 12-05-2022 15:37-0400 Body weight 77.11 kg [facility] 12-05-2022 15:37-0400 Diastolic blood pressure 58 mm[Hg] [facility] 12-05-2022 15:37-0400 Heart rate 75 /min [facility] 12-05-2022 15:37-0400 Respiratory rate 14 /min [facility] 12-05-2022 15:37-0400 SaO2% (BldA) [Mass fraction] 100 % [facility] 12-05-2022 15:37-0400 Systolic blood pressure 98 mm[Hg] [facility] 11-24-2021 12:38-0400 Body height 162.56 cm [facility] Work Phone: 11-24-2021 12:38-0400 Body mass index (BMI) [Ratio] 29.2 kg/m2 [facility] Work Phone: 11-24-2021 12:38-0400 Body temperature 97.4 [degF] [facility] Work Phone: 11-24-2021 12:38-0400 Body weight 77.11 kg [facility] Work Phone: 11-24-2021 12:38-0400 Diastolic blood pressure 42 mm[Hg] [facility] Work Phone: 11-24-2021 12:38-0400 Heart rate 69 /min [facility] Work Phone: 11-24-2021 12:38-0400 Respiratory rate 14 /min [facility] Work Phone: 11-24-2021 12:38-0400 SaO2% (BldA) [Mass fraction] 97 % [facility] Work Phone: 11-24-2021 12:38-0400 Systolic blood pressure 71 mm[Hg] [facility] Work Phone: Encounters Encounter Date Encounter Type Care Provider Facility Start: 02-25-2025 ambulatory Shayy Lawrence Facility:[facility] Start: 03-21-2023 End: 03-21-[address] [facility] Work Phone: Start: 03-21-2023 End: 03-21-2023 Patient encounter procedure [facility]-Outpatient Bone Densitometry Work Phone: Start: 02-07-2023 End: 02-07-[address] [facility] Work Phone: Start: 02-07-2023 End: 02-07-2023 Discharged Recurring [facility]-Occupational Therapy Work Phone: Start: 02-07-2023 End: 02-07-2023 Patient encounter procedure [facility] Start: 12-05-2022 End: 12-05-2022 Emergency department patient visit [facility]-Emergency Department Work Phone: Start: 03-16-2022 End: 03-16-[address] [facility] Work Phone: Start: 03-16-2022 End: 03-16-2022 Patient encounter procedure [facility]-Outpatient Breast Imaging Start: 11-24-2021 End: 11-24-2021 Emergency department patient visit [facility]-Emergency Department Procedures Date Procedure Procedure Detail Performing Clinician Start: 03-21-2023 Screening mammography Start: 12-05-2022 Plain x-ray of hand Start: 03-16-2022 Screening mammography Plan of Treatment Date Care Activity Detail Author Start: 03-21-2023 Dual energy X-ray absorptiometry Dexa Bone Density Study [facility] Start: 03-21-2023 DXA Bone [Mass/Area] Bone density [facility] Start: 02-07-2023 Vitamin D, 25-hydrox y measurement [facility] Start: 02-07-2023 [facility] Start: 12-05-2022 Smpl repair scalp/neck/ax/genit/trunk 2.6-7.5cm RPR S/N/AX/GEN/TRNK2.6- 7.5CM [facility] Start: 11-24-2021 Smpl repair scalp/neck/ax/genit/trunk 2.6-7.5cm RPR S/N/AX/GEN/TRNK2.6- 7.5CM [facility] Work Phone: Alanine aminotransfe rase [Enzymatic activity/volume] in Serum or Plasma [facility] Albumin [Mass/volume ] in Serum or Plasma [facility] Alkaline phosphatase [Enzymatic activity/volume] in Serum or Plasma [facility] Anion gap measurement [facility] Aspartate aminotrans ferase [Enzymatic activity/volume] in Serum or Plasma [facility] Bilirubin, total measurement [facility] BUN/Creatinine ratio [facility] Calcium [Mass/volume ] in Serum or Plasma [facility] Carbon dioxide, tota l [Moles/volume] in Serum or Plasma [facility] Chloride [Moles/volu me] in Serum or Plasma [facility] Cholesterol [Mass/vo lume] in Serum or Plasma [facility] Cholesterol in HDL [Mass/volume] in Serum or Plasma [facility] Cholesterol in LDL [Mass/volume] in Serum or Plasma [facility] Creatinine [Moles/vo lume] in Serum or Plasma [facility] Glucose [Mass/volume ] in Serum or Plasma [facility] Measurement of renal function [facility] Patient Education [facility] Work Phone: Patient referral [facility] Work Phone: Potassium [Moles/vol ume] in Serum or Plasma [facility] Sodium [Moles/volume ] in Serum or Plasma [facility] Total protein measurement [facility] Triglycerides measurement [facility] Urea nitrogen [Mass/ volume] in Serum or Plasma [facility] VLDL cholesterol measurement [facility] Immunizations Immunization Date Immunization Notes Care Provider Jina slaughter 03-24-2022 influenza, injectabl e, quadrivalent, preservative free [facility] 03-24-2022 influenza, seasonal, injectable [facility] 11-24-2021 tetanus toxoid, redu yuliana diphtheria toxoid, and acellular pertussis vaccine, adsorbed [facility] Payers Date Payer Category Payer Private Health Insurance 101 [id number] 2025 Self-pay [id number] Medicare MEDICARE PART A B [id number] Unknown [id number] Social History Date Type Detail Facility Start: 11-24-2021 End: 12-05-2022 Tobacco smoking status NHIS Unknown if ever smoked [facility] Start: 1945 Sex Assigned At Female [facility] Discharge summary 02-07-2023 Note Date & Type Note Facility 02-07-2023 Discharge summary Note Date/Time February 07, 2023 12:25pm [facility] Occupational Therapy [facility] [address] [place] [address] [address] [place] [address] / REHABILITATION SERVICES DISCHARGE SUMMARY MR#: [id number] Acct: [id number] Name: TRINO BURTON Rep #: [id number] 02 : 1945 77 From: Sylvia FRANKS CHT Referring DrQuinton: JORGE Jimenez Status: REG RCR Eval Date: Discharge Date: Discharge Summary D/C Summary: It has been my pleasure to treat TRINO BURTON under orders from Ruslan Jimenez PA-C, for the diagnosis of Laceration L idx & mid fngr w/o damage to nail, Disp fx of mid phalanx L IF for a total of 9 visit(s). Please see the following information for a summary of their discharge status. Overall Improvement % Improvement: 25 Objective Objective/Function: L IF DIP 5.5cm PIP 6 cm L IF DIP 0/90 L hand table machine operator strength: 24# L lateral table machine operator strength:14# L Tripod table machine operator strength: 8# Goals Patient Goals: Regain Mobility, Regain Strength, Decrease Pain, Decrease Swelling/Stiffness, Improve Fine Motor Skills, Use Hand/Wrist/Arm Normally Again, Increase ROM, Be More Independent in ADLS, Resume Former Household Responsibilities (Cooking,Cleaning,Yard, etc.) and Resume Hobbies Goal:: Pt will report ability to perform ADL and IADL tasks with no compensationor pain by discharge. Pt will improve Left table machine operator and pinch strength 75% of unaffected hand. Goal:: Pt to demo overall increased indep in ADL/IADL tasks by decreased total DASH score by 10 points by discharge. Goal:: Pt will report pain no greater than 0/10 with use of affected hand with BADLs and IADLs by discharge. Goal:: Pt to demo overall increased indep in ADL/IADL tasks by decreased total DASH score by 10 points by discharge. Plan Plan: Discharge D/C Information Discharge Comments: Pt was seen for 9 skilled OT sessions. Therapist edu in desensitization, protection of L IF DIP, and ring orthosis. Pt reports understanding of joint protection techniques, scar care, and ring orthosis to protect L IF DIP. Pt agreeable to discharge at this time. Therapy session was directly supervised and doc. approved by Sylvia FRANKS CHT. d/c sentence: If there are questions or concerns regarding this patient's occupational therapy, please fell free to call me at [phone]. Thank you for the referral of this patient. Sincerely, GOLDEN Delatorre CHT <Electronically signed by Sylvia FRANKS CHT> 02/07/23 1607 CC: JORGE Jimenez; Dr. Shahid Lam, DO ~ MK Signed [facility] Work Phone: Evaluation note Note Date & Type Note Facility Evaluation note No assessment information availa ble [facility] Work Phone: Chief Complaint and Reason for Visit Chief Complaint LAC SCREENING Chief Complaint LEFT HAND LAC Chief Complaint LEFT HAND LAC FX L INDEX FINGER DR TO FAX Chief Complaint LEFT HAND LAC FX L INDEX FINGER DR TO FAX SCREENING Advance Directives No Advanced Directives Records Found Advance Directive Response Recorded Date/ Time Living Will No November 24, 2021 12:59pm Power of Meal Packer No November 24 12:59pm Advance Directive Response Recorded Date/ Time Living Will No December 05, 2022 4 :14pm Power of Meal Packer No December 05, 2022 4:14pm Summary Purpose Family History No Family History Records Found Additional Source Comments Goals (unrecognized section and content) Goals may be documented in a n alternate sectionGoals may be documented in an alternate sectionGoals may be documented in an alternate sectionGoals may be documented in an alternate section Care Teams (unrecognized sec tion and content) Team Status: Active Member Role Status Dates Dr. Shahid Lam DO Family Provider Active Dr. Shahid Lam DO Primary Care Provider Active Team Status: Inactive Member Role Status Dates Dr. Shahid Lam DO Primary Care Provider Active Dr. Aldair Germain MD Emergency Provider Active Team Status: Active Member Role Status Dates Dr. Shahid Lam DO Family Provider Active LUIS MIGUEL Elkins Primary Care Provider Active Team Status: Inactive Member Role Status Dates Dr. Shahid Lam DO Primary Care Provider Active Dr. Aldair Germain MD Attending Provider, Emergency Provider Active Team Status: Inactive Member Role Status Dates Dr. Shahid Lam DO Primary Care Provider Active Chad EUCEDA PA-C Attending Provider, Referring Pr ovider Active Team Status: Active Member Role Status Dates LUIS MIGUEL Elkins Primary Care Provide r, Attending Provider, Referring Provider Active Team Status: Inactive Member Role Status Dates TITO ElkinsC Primary Care Provide r, Attending Provider, Referring Provider Active INFORMATION SOURCE (unrecogn ized section and content) DATE CREATED AUTHOR 02/28/2025 [facility] FOR RECORDS PERTAINING TO PATIENTS WHO ARE OR HAVE BEEN ENROLLED IN A CHEMICAL DEPENDENCY/SUBSTANCEABUSE PROGRAM, SOME INFORMATION MAY BE OMITTED. This clinical summary was aggregated from multiple sources. Caution should be exercised in using it in the provision of clinical care. This summary normalizes information from multiple sources, and as a consequence, information in this document may materially change the coding, format and clinical context of patient data. In addition, data may be omitted in some cases. CLINICAL DECISIONS SHOULD BE BASED ON THE PRIMARY CLINICAL RECORDS. [facility]. provides no warranty or guarantee of the accuracy or completeness of information in this document.
== END | disposition home or self-care (01) ==
PROVIDERS: PCP Nurse Practitioner Family; Referring Provider Nurse Practitioner Family; Visit Provider Nurse Practitioner Family
DX: R19.7 Diarrhea, unspecified (principal)
CPT/HCPCS: 87177; 87209